=== PATIENT | female | born 1940 | race Caucasian/White ===

== ENCOUNTER 2017-07-02 11:00 | Outpatient (CLI) | payer OTHER | END 2017-07-02 11:04 | disposition home or self-care (01) | LOC: RAD 11:00 | DX: J21.9 Acute bronchiolitis, unspecified (principal); M06.9 Rheumatoid arthritis, unspecified ==

== ENCOUNTER → 2017-07-04 | Outpatient (CLI) | payer OTHER | END | disposition home or self-care (01) | LOC: RAD 13:33 | DX: R29.6 Repeated falls (principal) ==

== ENCOUNTER → 2017-07-04 | Outpatient (CLI) | payer OTHER | END | disposition home or self-care (01) | LOC: TOM 13:14 | DX: K57.90 Diverticulosis of intestine, part unspecified, without perforation or abscess without bleeding (principal); R29.6 Repeated falls; R10.2 Pelvic and perineal pain ==